=== PATIENT | female | born 1940 | race Caucasian/White ===

== ENCOUNTER → 2017-08-14 | Outpatient (CLI) | payer MEDICARE, BC ==
[~2017-08-14] MED LIST: ATOR10 PO; CAL-TAB4 PO; CALCTAB32 PO; COUM2TAB PO; FERR324T4 PO; GLUCTAB PO; KONS520C PO; LATA.005%O OU; LATA0.002 EACH EYE; LIPI10TA PO; LISI10TA PO; LISI40TA PO; METF500T PO; MULTTAB67 PO; OCUVTAB4 PO; OXYC-360 PO; SENN1TAB11 PO; TAB-TAB PO; TRIA1CAP6 PO; TRIA37.53 PO; TRUS2SOL EACH EYE; TRUS2SOL OU; [UNRECOGNIZED DRUG - CODE] PO
--- NOTE | 2017-08-15 16:39 | EKG ---
Date Performed: 08/14/2017 Time Performed: 12:43:37 PTAGE: 76 years EKG: Sinus rhythm When compared to previous tracing, there has been a leftward shift in axis. Can not exclude question able interval inferior infarct. Tracing is otherwise without significant serial change. ABNORMAL ECG PREVIOUS TRACING : 09/30/2011 10.48 DOCTOR: Haylee Griffin Interpretating Date/Time 08/15/2017 16:38:09
== END ==
LOC: PHPRE 11:52
PROVIDERS: ATTEND Ophthalmology
DX: Z01.810 Encounter for preprocedural cardiovascular examination (principal); R94.31 Abnormal electrocardiogram [ECG] [EKG]
CPT/HCPCS: 93005

== ENCOUNTER → 2017-08-28 | Day surgery (SDC) | payer MEDICARE, BC ==
--- NOTE | 2017-08-16 13:30 | MH ---
cc: [facility], JONO PETE DATE OF ADMISSION: 08/28/2017 ADMISSION DIAGNOSIS Cataract, left eye. HISTORY OF PRESENT ILLNESS This 76-year-old white female is coming through [facility] for the purpose of a lens extraction of the left eye with intraocular lens implant under local anesthesia. She has noted decreasing visual acuity interfering with her daily activities and elected to have the above procedure. Her best-corrected visual acuity is 20/25 -3 in the right eye, and 20/70 -2 in the left. PAST MEDICAL HISTORY The patient has a history of epiretinal membrane greater in the right eye than the left, and also a retinal tear in the right eye in the past, both of which are followed by her retinal specialist. She also has a history of hypertension, cholesterol problems, asthma, diabetes and stomach issues causing diarrhea. PAST SURGICAL HISTORY 1. Hand rotator cuff surgery. 2. Hysterectomy. 3. Laser peripheral iridectomy in both eyes for narrow anterior chamber angles. 4. Bilateral total knee replacement. 5. Appendectomy. 6. The above-mentioned laser treatment for retinal tear in the right eye. MEDICATIONS Daily medications include: 1. Metformin. 2. Lisinopril. 3. Hydrochlorothiazide. 4. Triamterene. 5. Lipitor. 6. Ativan occasionally. 7. Multivitamins. 8. Calcium plus D. 9. Ocular vitamins. 10. Metamucil. 11. Latanoprost eye drops in both eyes for chronic open angle glaucoma. ALLERGIES 1. ALPHAGAN EYE DROPS. 2. TYLENOL WITH CODEINE. SOCIAL HISTORY She does not smoke and occasionally has a glass of wine or cocktail when she goes to dinner. FAMILY HISTORY Positive for her son who had a crossed eye at . REVIEW OF SYSTEMS HEAD: Patient denies severe headaches, dizziness or recent head injury. EARS: Patient denies hearing loss, ear pain, discharge or ringing in the ears. NOSE: Patient denies nasal discharge, obstruction or frequent colds. MOUTH AND THROAT: Patient denies soreness of the mouth or tongue, bleeding gums, trouble swallowing, changes in voice or sore throat. NECK: Patient denies neck pain or swelling, limitation of neck movement or neck injury. CARDIOPULMONARY SYSTEM: Patient denies shortness of breath, orthopnea, chronic cough, sputum production, hemoptysis, chest pain, wheezing, palpitations or light-headedness. GI SYSTEM: The patient has a history of hemorrhoids and some diarrhea. Patient denies poor appetite, nausea, vomiting, abdominal pain, ulcers or change in bowel habits. SYSTEM: The patient denies urinary frequency, dysuria, change in urine color. NERVOUS SYSTEM: Patient denies convulsions, vertigo, stroke, numbness or weakness. PHYSICAL EXAMINATION VITAL SIGNS: Blood pressure 126/72, pulse 88, respirations 16. HEAD: Normocephalic, atraumatic. NOSE: Without rhinorrhea. THROAT: Clear. NECK: Supple. CHEST: Clear. HEART: Regular rhythm. ABDOMEN: Without tenderness. EXTREMITIES: Without edema. NEUROLOGIC: Within normal limits. MENTAL STATUS: Within normal limits. EYE EXAM: The patient's best-corrected visual acuity is 20/25 -3 in the right eye and 20/70 -2 in the left. Visual sanchez are full to confrontation testing. Extraocular muscle exam reveals full versions with orthophoria at distance and near. Pupils are 2 mm, equal, round and reactive to light without afferent defect. Anterior segment examination reveals peripheral iridectomy in each eye. Nuclear sclerotic and posterior cortical cataract changes are present bilaterally. Intraocular pressure is 15 in the right eye and 14 in the left by applanation tonometry. Dilated fundus exam reveals sharp disks with cup-to-disk ratio of 0.7 in the right eye and 0.8 in the left. The macula has an epiretinal membrane present bilaterally. A posterior vitreous detachment is present bilaterally. IMPRESSION 1. Bilateral cataracts. 2. Chronic open angle glaucoma. 3. Status post peripheral iridectomy in each eye for narrow anterior chamber angles. 4. Epiretinal membrane, both eyes. 5. Posterior deep vitreous detachment, both eyes. PLAN Lens extraction of the left eye with intraocular lens implant under local anesthesia through [facility]. Iris retractors may be utilized in this patient whose pupil does not necessarily dilate well. The patient has been cleared medically. She has been counseled as to the risks, benefits and alternatives and elected to proceed. Her retinal specialist has told her she still may have some visual difficulty due to her epiretinal membrane after that cataract is removed. Jono N. Merna, MD [employer]ING [employer] DEVELOPMENT REP/BT /12:42 PM /12:58 PM
[~2017-08-28] VITALS: Ht 172.7 cm; Wt 84.0 kg
[~2017-08-28] MED LIST changes: -ATOR10 PO; -CALCTAB32 PO; +CHLORHEXIDINE GLUCONATE 2 % 1 PACK (2 CLOTHS) TOPICAL PRN; -COUM2TAB PO; +EPINEPHrine HCL PF/SF (1:1000) 1 MG/ML AMP I-OCULAR ONE; -FERR324T4 PO; -GLUCTAB PO; +HYALURONIDASE/LIDOCAINE/BUPIVACAINE 5 ML SYR SCH; -KONS520C PO; +LACTATED RINGER'S 1000 ML IV PRN; -LATA.005%O OU; -LISI10TA PO; +METOPROLOL TARTRATE 25 MG TAB PO PRN; -OXYC-360 PO; +PILOCARPINE HCL 2% OPHT SOLN 15 ML BTL ONE; +POVIDONE IODINE 5% (ANTISEPSIS KIT) 4 APPLICATIONS EACH NARE PRN; +PROPARACAINE HCL 0.5% OPHT SOLN 15 ML BTL LEFT EYE ONE; +PROPOFOL 200 MG/20 ML AMP ONE; -SENN1TAB11 PO; +SODIUM CHLORID 0.9% 500 ML IV PRN; -TAB-TAB PO; +TOBRAMYCIN 0.3%/DEXAMETHASONE 0.1% OPHT SUSP 5 ML BTL ONE; +TOBRAMYCIN/DEXAMETHASONE OPTH OINT 3.5 GM TUBE ONE; -TRIA1CAP6 PO; -TRUS2SOL OU; +VISCOAT OPHT IRRIG SOLN 0.75 ML SYRINGE ONE; +acetaZOLAMIDE SEQUELS 500 MG SUSTAINED RELEASE CAP ONE
[2017-08-28 08:21] VITALS: PULSE 65
[2017-08-28] MEDS: CYCLOPENTOLATE HCL 1% OPHT SOLN 2 ML BTL LEFT EYE SCH ×4 (09:08→09:17)
[2017-08-28] MEDS: PHENYLEPHRINE HCL 2.5% OPTH SOLN 2 ML BTL LEFT EYE SCH ×4 (09:08→09:17)
[2017-08-28] MEDS: DICLOFENAC SOD 0.1% OPHT SOLN 2.5 ML BTL LEFT EYE SCH ×4 (09:08→09:17)
[2017-08-28] MEDS: TROPICAMIDE 1% OPHT SOLN 15 ML BTL LEFT EYE SCH ×4 (09:08→09:17)
[2017-08-28] MEDS: GATIFLOXACIN 0.5% OPHT SOLN 2.5 ML BTL LEFT EYE SCH ×4 (09:08→09:17)
[2017-08-28 09:42] VITALS: PULSE 70
[2017-08-28] MEDS: ACETYLCHOLINE CHL OPHT SOLN 1:100 2 ML VIAL ONE ×2 (10:40→14:27)
[2017-08-28 12:00] VITALS: BP 135/69; PULSE 73; RESP 16; O2SAT 99
--- NOTE | 2017-08-28 12:21 | MP ---
cc: JONO BAUMAN DATE OF SURGERY: 08/28/2017 PREOPERATIVE DIAGNOSIS Cataract, left eye. POSTOPERATIVE DIAGNOSIS Cataract, left eye. OPERATION Extracapsular cataract extraction with posterior chamber intraocular lens implant by phacoemulsification, left eye. SURGEON Jono Bauman M.D. ANESTHESIA Local. COMPLICATIONS None. INDICATIONS See history and physical previously dictated. OPERATIVE PROCEDURE The patient had adequate retrobulbar and eyelid blocks administered in the holding area and was brought to the operating room. The left eye was prepped and draped in the usual sterile ophthalmic manner. A lid speculum was inserted in the left eye. A 4-0 silk bridle suture was placed through the conjunctiva near the superior rectus muscle and it was tacked to the drape. A fornix-based conjunctival flap was prepared spanning approximately 5 mm in width. Hemostasis was obtained with wet-field cautery. A 3.5 mm groove was made 1 mm from the limbus and dissected up to the limbus in the form of a scleral pocket incision. A stab incision was then made at the 2 o'clock position. Viscoelastic was injected into the anterior chamber. The anterior chamber was entered with a 2.75 mm keratome through the scleral pocket incision. A 360 degree continuous curvilinear capsulorrhexis was then performed. Hydrodissection was utilized to divide the nucleus into inner and outer components and to separate the cortex from the capsule. Phacoemulsification was then utilized to remove the nucleus. The outer nuclear layer was removed with irrigation and aspiration and short bursts of ultrasound as necessary. The cortex was removed with the irrigation-aspiration handpiece. The posterior capsule was polished with the capsule polisher. Viscoelastic was injected into the capsular bag. The intraocular lens was inspected and found to be in good condition. The lens utilized was an Octavio model SA60AT with a power of +21.5 diopters. The lens was inserted into the capsular bag. The viscoelastic in the anterior chamber was then removed with the irrigation-aspiration handpiece. Viscoelastic was also removed from beneath the intraocular lens. The anterior chamber was filled with Miochol-E through the stab incision and pressurized. The wound was checked for leaks at this pressure and normalized pressure, and there were none. The 4-0 bridle suture was removed. The conjunctival flap was brought down over the wound and secured with cautery. Pilocarpine 2% eye drops were instilled topically. The lid speculum was removed. TobraDex ophthalmic ointment was applied. The eye was double patched and shielded. The patient tolerated the procedure well and left the Operating Room in satisfactory condition. JonoMD MESHA Frye/TOM /11:29 AM /12:15 PM
== END | disposition home or self-care (01) ==
LOC: PHSDC 07:56
PROVIDERS: ATTEND Ophthalmology
DX: H25.812 Combined forms of age-related cataract, left eye (principal); H43.813 Vitreous degeneration, bilateral; H40.10X0 Unspecified open-angle glaucoma, stage unspecified; E11.9 Type 2 diabetes mellitus without complications; J45.909 Unspecified asthma, uncomplicated; I10 Essential (primary) hypertension; Z96.653 Presence of artificial knee joint, bilateral; Z79.84 Long term (current) use of oral hypoglycemic drugs
CPT/HCPCS: 00142; 66984; 82948; J0171; J7040; V2632